=== PATIENT | male | born 1935 | race Caucasian/White ===

== ENCOUNTER → 2016-09-07 | Day surgery (SDC) | payer MEDICARE, BC ==
[~2016-09-07] MED LIST: ACID GONE ANTA355 M1 PO; AMBIEN PO; ASPIRIN81 MG PO; BAZA PROTECT CR57 GM TOP; BENADRYL25 M1 PO; CALCIUM + D 6001 TA1 PO; CITRACAL200 MG PO; CRESTOR PO; DURAGESIC1 EAC1 TD; FAST RELIEF LAX10 MG PR; LACTULOSE10 G/15 M1 PO; LOVENOX40 MG/0.4 INJ; MIRALAX17 GM PO; MULTIVITAMINS1 EAC2 PO; PERCOCET7.5 PO; SENNA8.6 M1 PO; TOPROL XL50 MG PO; ZESTORETIC 20-1 EAC1 PO; [UNRECOGNIZED DRUG - CODE] PO
--- NOTE | ~2016-09-07 | OR ---
Unit #: [id number] #: [id number] Patient: JUAN TOVAR [id number] [address] [place], [place] [address] [id number] O MR#: [id number] NAME: JUAN TOVAR ROOM: Date of Procedure: 09/07/2016 Admission Date: 09/07/2016 Surgeon: Inocente Su M.D. : 1935 Attending Physician: Inocente Su M.D. Primary Care Physician: Paco Zuñiga II, M.D. OPERATIVE REPORT PREOPERATIVE DIAGNOSIS Right olecranon and coronoid fracture. POSTOPERATIVE DIAGNOSIS Right olecranon and coronoid fracture. PROCEDURE PERFORMED Open reduction and internal fixation of right olecranon fracture. ETL CONSULTANT Elvia Rizvi APRN, TITUS. IMPLANTS DePuy ALPS olecranon plate, large. ANESTHESIA General with regional nerve block. ESTIMATED BLOOD LOSS Minimal. COMPLICATIONS None apparent. DRAINS None. SPECIMENS None. INDICATIONS FOR PROCEDURE Mr. Tovar is a 81-year-old gentleman, who sustained an injury to his right elbow during a fall. This was a comminuted fracture of the olecranon and coronoid. Operative intervention was discussed including risks, benefits, and alternatives, and elected to proceed. DESCRIPTION OF PROCEDURE The patient was identified in the preoperative holding area. The operative site was marked. A regional block was performed. The patient was brought to the operating room and placed supine on the operating table. A general anesthetic was induced. The patient was positioned supine in case an approach to the coronoid would be needed. The arm was Unit #: [id number] #: [id number] Patient: JUAN TOVAR positioned and folded across the chest. The arm was prepped and draped in sterile fashion over a nonsterile tourniquet. The arm was exsanguinated and the tourniquet was inflated. An incision was made over the posterior aspect of the elbow curving radially around the olecranon. Dissection was carried down through subcutaneous tissues. There was traumatic disruption through the deeper fascial layers. Hematoma was removed. The fracture site was readily identifiable with fairly dramatic visualization of the distal humerus through the defect. The fracture edges were exposed. The proximal segment was immobile. The tourniquet was deflated, which afforded us some more mobility of the olecranon fragment. This was reduced and provisionally pinned with two K-wires. The reduction was checked under fluoroscopy. The plate of the desired size was then fashioned. This was secured proximally to the olecranon through a small split in the triceps. It was secured distally with a nonlocking screw. Again, plate positioning was checked under C-arm imaging. We had an anatomic reduction. The proximal two locking screws were then placed in the olecranon along with the longitudinal screw. We placed a total of four screws in the shaft distally. The home-run screw was placed last. The final radiographic images were obtained. The reduction was anatomic. The arm was taken through range of motion. He had full flexion and extension and full pronation and supination of the forearm. The coronoid fracture did not require fixation for stability or to protect range of motion. It should be noted that previously in the procedure, we were able to sublux the ulna and radial head and directly visualized the proximal radioulnar joint. There was concern on the CT scan of incongruent fragment here. However, under direct visualization, there was no impingement or restriction of motion of the proximal radioulnar joint. The fascia was then closed with 0 Vicryl followed by 2-0 Vicryl in the subcutaneous tissues and hermes in the skin. A well-padded posterior splint was applied. DISPOSITION Stable to the recovery room. Dictated by... Brayden Estrada/franco TD: 09/08/2016 02:51 JOB #: [id number] OPERATIVE REPORT Page 1 of 1 X Inocente Su MD PROCEDURE OPERATIVE NOTE
--- NOTE | ~2016-09-07 | EKG ---
PATIENT: JUAN TOVAR UNIT #: [id number] Ventricular Rate: 59 BPM Atrial Rate: 59 BPM P-R Interval: 164 ms QRS Duration: 110 ms Q-T Interval: 412 ms QTC Calculation(Bezet): 407 ms P [place]: 16 degrees Calculated R [place]: -32 degrees Calculated T [place]: 1 degrees Diagnosis Line: Sinus bradycardia Diagnosis Line: Left axis deviation Diagnosis Line: Borderline ECG Diagnosis Line: No previous ECGs available Diagnosis Line: Confirmed by TYREE HATCH MD ([id number]) on 09/07/2016 Diagnosis Line: 9:22:28 PM INTERPRETING MD: HODLEN GANT
--- NOTE | ~2016-09-07 | CR94 ---
[facility] A Service of [facility] RADIOLOGY TEXT RESULTS PATIENT: JUAN TOVAR LOCATION: [facility] : 39 UNIT #: [id number] AGE: [address]: Inocente Su MD SEX: M ORDER DR: [id number] [facility] [address] [place], [place] [address] [id number] O MR#: [id number] Acc #: [id number] NAME: JUAN TOVAR : 1935 SEX: M STUDY DATE/TIME: 09/07/2016 10:15 UNIT: [facility] ROOM: STUDY DESCRIPTION: CR Elbow Min 3 Views Rt Attending Physician: Inocente Su M.D. Ordering Physician: Inocente Su M.D. Primary Care Physician: Paco Zuñiga II, M.D. MEDICAL IMAGING REPORT This report is preliminary unless electronic signature is present EXAM C-arm fluoroscopy with 6 permanent images of the right elbow, 09/07/2016 HISTORY ORIF right elbow fracture status post fall 2 days ago. Right elbow pain and swelling. FINDINGS C-arm fluoroscopy was provided for use in the operating room. 6 spot film radiographs of the right elbow were obtained in the anterior and lateral projections. 29 seconds of fluoroscopy time was utilized. The exam shows placement of surgical plate and screws across the fracture involving the proximal ulna. The bones are in anatomic alignment. Dictated by... Inocente Cao M.D. THIS IS AN ELECTRONICALLY VERIFIED REPORT Inocente Cao M.D. at 09/08/2016 8:11 AM SULY/alessandro TD: 09/07/2016 14:09 JOB #: [id number] MEDICAL IMAGING REPORT Page 1 of 1 COPY
== END | disposition home or self-care (01) ==
LOC: CSUR 06:26
DX: S52.021A Displaced fracture of olecranon process without intraarticular extension of right ulna, initial encounter for closed fracture (principal); S42.131A Displaced fracture of coracoid process, right shoulder, initial encounter for closed fracture; W19.XXXA Unspecified fall, initial encounter; I10 Essential (primary) hypertension; M19.90 Unspecified osteoarthritis, unspecified site; Z88.0 Allergy status to penicillin; Z79.82 Long term (current) use of aspirin; Z79.891 Long term (current) use of opiate analgesic; Z79.899 Other long term (current) drug therapy; Z90.49 Acquired absence of other specified parts of digestive tract; Z96.641 Presence of right artificial hip joint; Z98.890 Other specified postprocedural states
CPT/HCPCS: 73080; 76000; 93005; C1713; J2405; J2795; J3010; J3370